=== PATIENT | male | born 1960 | race Caucasian/White ===

== ENCOUNTER 2016-11-18 10:16 | Emergency (ER) | payer MEDICAID, MEDICARE ==
[~2016-11-18] VITALS: Ht 188 cm; Wt 81.4 kg
[~2016-11-18 10:16] MED LIST: NOCURR
[2016-11-18] MEDS ORDERED: BUPR-47 PO (10:27)
[2016-11-18] MEDS ORDERED: VENL-66 PO (10:27)
[2016-11-18 11:25] VITALS: BP 109/78
== END 2016-11-18 12:04 | disposition home or self-care (01) ==
LOC: EMS 10:23
DX: Z76.0 Encounter for issue of repeat prescription (principal); F20.9 Schizophrenia, unspecified; F17.210 Nicotine dependence, cigarettes, uncomplicated; Z88.8 Allergy status to other drugs, medicaments and biological substances
CPT/HCPCS: 99283

== ENCOUNTER 2016-11-20 18:32 | Emergency (ER) | payer MEDICARE ==
[~2016-11-20] VITALS: Ht 188 cm; Wt 81.4 kg
[~2016-11-20 18:32] MED LIST changes: +BUPR-47 PO; -NOCURR; +VENL-66 PO
[2016-11-20 18:36] VITALS: BP 136/55
[2016-11-20] MEDS ORDERED: IBUPROFEN 800 MG TABLET PO ONE (20:15)
== END 2016-11-20 21:45 | disposition home or self-care (01) ==
LOC: EMS 18:33
DX: S43.102A Unspecified dislocation of left acromioclavicular joint, initial encounter (principal); F17.210 Nicotine dependence, cigarettes, uncomplicated; Z88.8 Allergy status to other drugs, medicaments and biological substances; W01.0XXA Fall on same level from slipping, tripping and stumbling without subsequent striking against object, initial encounter; Y93.01 Activity, walking, marching and hiking; Y92.89 Other specified places as the place of occurrence of the external cause; Y99.8 Other external cause status
CPT/HCPCS: 99284

== ENCOUNTER 2019-02-19 15:30 | Inpatient (IN) | payer MEDICARE, MEDICAID ==
[~2019-02-19] VITALS: Ht 185.4 cm; Wt 77.3 kg
[2019-02-19] MEDS ORDERED: TRAM50TA4 PO (15:46)
[2019-02-19 16:30] LABS: HEMATOCRIT 21.5 % (41-53); MEAN CORPUSCULAR HEMOGLOBIN 26.5 pg (26.0-34.0); MEAN CORPUSCULAR HGB CONC 32.4 G/dL (31.0-37.0); MEAN CORPUSCULAR VOLUME 82 fL (80-100); PLATELET COUNT (AUTO) 404 K/uL (150-450); RED BLOOD CELL COUNT(AUTO) 2.63 MIL/uL (4.50-5.90); RED CELL DISTRIBUTION WIDTH 18.1 % (11.5-14.5)
[2019-02-19 16:46] LABS: ANION GAP 9 mmol/L (8-16); CALCIUM, TOTAL 8.5 mg/dL (8.8-10.5); CARBON DIOXIDE 27 mmol/L (22-29); CHLORIDE 94 mmol/L (98-107); CREATININE 0.84 mg/dL (0.60-1.30); GLOMERULAR FILTR. RATE CALC > 60 mL/min (>60); GLUCOSE,RANDOM 91 mg/dL (70-110); POTASSIUM 3.8 mmol/L (3.5-5.1); SODIUM SERUM 130 mmol/L (136-145); UREA NITROGEN, BLOOD 16 mg/dL (7-18)
[2019-02-19 16:52] LABS: ALANINE AMINOTRANSFERASE 37 U/L (12-78); ALBUMIN 2.9 g/dL (3.4-5.0); ALKALINE PHOSPHATASE 118 U/L (46-116); ASPARTATE AMINOTRANSFERASE 25 U/L (15-37); BILIRUBIN,TOTAL 0.2 mg/dL (0.1-1.0); TOTAL PROTEIN, SERUM 6.9 g/dL (6.4-8.2)
[2019-02-19 17:34] LABS: PROTHROMBIN TIME 9.8 SEC (9.4-11.6)
[2019-02-19 17:42] LABS: BAND NEUTROPHILS % (MANUAL) 0 % (0-5)
[2019-02-19 17:43] LABS: EOSINOPHILS % (MANUAL) 2 % (1-6); LYMPHOCYTES % (MANUAL) 15 % (22-44); MONOCYTES % (MANUAL) 7 % (2-9); SEGMENTED NEUTROPHILS % 76 % (40-70); WBC MORPHOLOGY HYPERSEGMENTED NEUT
[2019-02-19 17:48] LABS: RETICULOCYTE % (AUTO) 2.2 % (0.5-2.3)
[2019-02-19 18:16] LABS: % IRON SATURATION 1.8 % (30-44)
[2019-02-19] MEDS ORDERED: SODIUM CHLORIDE 0.9% 250 ML IV ONE (18:49)
[2019-02-19 19:00] VITALS: BP 159/86
[2019-02-19 19:15] VITALS: BP 158/90
[2019-02-19 19:30] VITALS: BP 155/78
[2019-02-19 20:00] VITALS: BP 157/86
[2019-02-19 20:56] VITALS: BP 145/85
[2019-02-19] MEDS ORDERED: ONDANSETRON HCL 4 MG/2 ML VIAL IVP PRN (22:00)
[2019-02-19] MEDS ORDERED: 0.9% SODIUM CHLORIDE 10 ML SYRINGE IVP PRN (22:00)
[2019-02-19] MEDS ORDERED: FAMOTIDINE 10 MG/ML 2 ML VIAL IVP ONE (22:00)
[2019-02-19] MEDS ORDERED: ZOLPIDEM TARTRATE 5 MG TABLET PO PRN (22:00)
[2019-02-20] VITALS (7 sets, daily range): BP systolic 96–149; BP diastolic 58–86
[2019-02-20 06:40] LABS: HEMATOCRIT 26.3 % (41-53); HEMOGLOBIN 8.3 g/dL (13.5-17.5); MEAN CORPUSCULAR HEMOGLOBIN 25.5 pg (26.0-34.0); MEAN CORPUSCULAR HGB CONC 31.5 G/dL (31.0-37.0); MEAN CORPUSCULAR VOLUME 81 fL (80-100); PLATELET COUNT (AUTO) 449 K/uL (150-450); RED BLOOD CELL COUNT(AUTO) 3.25 MIL/uL (4.50-5.90); RED CELL DISTRIBUTION WIDTH 17.7 % (11.5-14.5)
[2019-02-20 06:50] LABS: ANION GAP 6 mmol/L (8-16); CALCIUM, TOTAL 8.6 mg/dL (8.8-10.5); CARBON DIOXIDE 28 mmol/L (22-29); CHLORIDE 96 mmol/L (98-107); CREATININE 0.69 mg/dL (0.60-1.30); GLOMERULAR FILTR. RATE CALC > 60 mL/min (>60); GLUCOSE,RANDOM 86 mg/dL (70-110); POTASSIUM 4.4 mmol/L (3.5-5.1); SODIUM SERUM 130 mmol/L (136-145); UREA NITROGEN, BLOOD 15 mg/dL (7-18)
[2019-02-20 07:04] LABS: BAND NEUTROPHILS % (MANUAL) 0 % (0-5)
[2019-02-20 08:29] LABS: EOSINOPHILS % (MANUAL) 1 % (1-6); LYMPHOCYTES % (MANUAL) 17 % (22-44); MONOCYTES % (MANUAL) 8 % (2-9); SEGMENTED NEUTROPHILS % 74 % (40-70)
[2019-02-20] MEDS: DOCUSATE SODIUM 100 MG CAPSULE PO SCH ×2 (08:31→20:22)
[2019-02-20] MEDS ORDERED: PANTOPRAZOLE SODIUM 40 MG DR TABLET PO SCH (09:00)
[2019-02-20] MEDS ORDERED: POTASSIUM CHL 10 MEQ/WATER 50 ML IV PRN (09:45)
[2019-02-20] MEDS ORDERED: POTASSIUM CHLORIDE 20 MEQ ER TABLET PO PRN (09:45)
[2019-02-20] MEDS ORDERED: MAGNESIUM OXIDE 400 MG TABLET PO PRN (09:45)
[2019-02-20] MEDS ORDERED: MAGNESIUM SULFATE 2 GM/WATER 50 ML IV PRN (09:45)
[2019-02-20] MEDS ORDERED: MAGNESIUM SULFATE 4 GM/WATER 100 ML IV PRN (09:45)
[2019-02-20 10:33] LABS: ALBUMIN 3.1 g/dL (3.4-5.0)
[2019-02-20] MEDS ORDERED: SODIUM CHLORIDE 0.9% 1,000 ML IV ONE ×2 (14:15)
[2019-02-20] MEDS ORDERED: FentaNYL CITRATE-PF 100 MCG/2 ML VIAL ONE (14:53)
[2019-02-20] MEDS ORDERED: MIDAZOLAM HCL 5 MG/ML VIAL ONE (14:53)
[2019-02-20] MEDS ORDERED: BuPROPion HCL 100 MG TABLET PO SCH (18:00)
[2019-02-20] MEDS: TraMADol HCL 50 MG TABLET PO SCH (18:36)
[2019-02-20] MEDS: PANTOPRAZOLE SODIUM 40 MG DR TABLET PO SCH (20:22)
[2019-02-21 04:51] VITALS: BP 133/69
[2019-02-21 07:19] LABS: EOSINOPHILS % (AUTO) 3.1 % (1.0-6.0); HEMATOCRIT 23.5 % (41-53); HEMOGLOBIN 7.9 g/dL (13.5-17.5); LYMPHOCYTES # (AUTO) 1.2 K/uL (1.0-4.8); LYMPHOCYTES % (AUTO) 20.8 % (22.0-44.0); MEAN CORPUSCULAR HEMOGLOBIN 27.3 pg (26.0-34.0); MEAN CORPUSCULAR HGB CONC 33.4 G/dL (31.0-37.0); MEAN CORPUSCULAR VOLUME 82 fL (80-100); MONOCYTES # (AUTO) 0.5 K/uL (0.1-1.0); MONOCYTES % (AUTO) 8.3 % (2.0-9.0); NEUTROPHILS # (AUTO) 3.9 K/uL (1.8-7.7); NEUTROPHILS % (AUTO) 66.8 % (40.0-70.0); PLATELET COUNT (AUTO) 398 K/uL (150-450); RED BLOOD CELL COUNT(AUTO) 2.88 MIL/uL (4.50-5.90); RED CELL DISTRIBUTION WIDTH 17.6 % (11.5-14.5)
[2019-02-21 07:24] LABS: ANION GAP 3 mmol/L (8-16); CALCIUM, TOTAL 8.8 mg/dL (8.8-10.5); CARBON DIOXIDE 29 mmol/L (22-29); CHLORIDE 99 mmol/L (98-107); CREATININE 0.77 mg/dL (0.60-1.30); GLOMERULAR FILTR. RATE CALC > 60 mL/min (>60); GLUCOSE,RANDOM 105 mg/dL (70-110); POTASSIUM 4.5 mmol/L (3.5-5.1); SODIUM SERUM 131 mmol/L (136-145); UREA NITROGEN, BLOOD 24 mg/dL (7-18)
[2019-02-21] MEDS: PANTOPRAZOLE SODIUM 40 MG DR TABLET PO SCH ×2 (08:01→21:35)
[2019-02-21] MEDS: BuPROPion HCL XL 150 MG ER TABLET PO SCH (08:01)
[2019-02-21] MEDS: DOCUSATE SODIUM 100 MG CAPSULE PO SCH ×2 (08:01→21:35)
[2019-02-21] MEDS: TraMADol HCL 50 MG TABLET PO SCH (08:02)
[2019-02-21 08:07] VITALS: BP 126/77
[2019-02-21 11:46] VITALS: BP 110/64
[2019-02-21 16:40] VITALS: BP 108/60
[2019-02-21 20:29] VITALS: BP 114/95
[2019-02-21 23:27] VITALS: BP 107/61
[2019-02-22 04:00] VITALS: BP 116/66
[2019-02-22 06:39] LABS: BASOPHILS % (AUTO) 0.8 % (0.0-2.0); EOSINOPHILS % (AUTO) 2.8 % (1.0-6.0); HEMOGLOBIN 7.8 g/dL (13.5-17.5); LYMPHOCYTES # (AUTO) 1.3 K/uL (1.0-4.8); LYMPHOCYTES % (AUTO) 24.5 % (22.0-44.0); MEAN CORPUSCULAR HEMOGLOBIN 26.4 pg (26.0-34.0); MEAN CORPUSCULAR HGB CONC 32.5 G/dL (31.0-37.0); MEAN CORPUSCULAR VOLUME 81 fL (80-100); MONOCYTES # (AUTO) 0.4 K/uL (0.1-1.0); MONOCYTES % (AUTO) 7.9 % (2.0-9.0); NEUTROPHILS # (AUTO) 3.3 K/uL (1.8-7.7); PLATELET COUNT (AUTO) 384 K/uL (150-450); RED BLOOD CELL COUNT(AUTO) 2.95 MIL/uL (4.50-5.90); RED CELL DISTRIBUTION WIDTH 17.9 % (11.5-14.5)
[2019-02-22 06:50] LABS: ANION GAP 5 mmol/L (8-16); CALCIUM, TOTAL 8.5 mg/dL (8.8-10.5); CARBON DIOXIDE 29 mmol/L (22-29); CHLORIDE 100 mmol/L (98-107); CREATININE 0.78 mg/dL (0.60-1.30); GLOMERULAR FILTR. RATE CALC > 60 mL/min (>60); GLUCOSE,RANDOM 99 mg/dL (70-110); POTASSIUM 4.4 mmol/L (3.5-5.1); SODIUM SERUM 134 mmol/L (136-145); UREA NITROGEN, BLOOD 14 mg/dL (7-18)
[2019-02-22] MEDS: BuPROPion HCL XL 150 MG ER TABLET PO SCH (07:58)
[2019-02-22] MEDS: TraMADol HCL 50 MG TABLET PO SCH (07:58)
[2019-02-22] MEDS: PANTOPRAZOLE SODIUM 40 MG DR TABLET PO SCH (07:58)
[2019-02-22] MEDS: DOCUSATE SODIUM 100 MG CAPSULE PO SCH (07:58)
[2019-02-22 08:01] VITALS: BP 124/74
[2019-02-22 12:55] VITALS: BP 120/68
[2019-02-22] MEDS ORDERED: PANT40TA25 PO (13:34)
== END 2019-02-22 16:14 | disposition home or self-care (01) | DRG 812 ==
LOC: EMS 15:32 → 4E 20:21
PROVIDERS: ADMIT Internal Medicine; ATTEND Internal Medicine
PROC: 30233N1 Transfusion of Nonautologous Red Blood Cells into Peripheral Vein, Percutaneous Approach (ICD-10-PCS; 2019-02-19)
PROC: 0DB58ZX Excision of Esophagus, Via Natural or Artificial Opening Endoscopic, Diagnostic (ICD-10-PCS; principal; 2019-02-20 15:30)
DX: D50.9 Iron deficiency anemia, unspecified (principal); K22.10 Ulcer of esophagus without bleeding; F20.9 Schizophrenia, unspecified; K44.9 Diaphragmatic hernia without obstruction or gangrene; F17.210 Nicotine dependence, cigarettes, uncomplicated; K26.9 Duodenal ulcer, unspecified as acute or chronic, without hemorrhage or perforation; Z88.8 Allergy status to other drugs, medicaments and biological substances
CPT/HCPCS: 74176; 83540; 83550; 83735; 85045; 86850; 86900; 86901; 86920; 87081; 88305; 88312; 88341; 88342; G0378; J2250; J3010; J3490; J7030; J7050; P9016